=== PATIENT | female | born 1995 | race African-American/Black ===

== ENCOUNTER 2017-01-13 05:38 | Emergency (ER) | payer MEDICAID ==
[~2017-01-13] VITALS: Ht 160 cm; Wt 68.0 kg
[2017-01-13 05:41] VITALS: BP 135/88
[2017-01-13 06:10] LABS: DEFINITIVE VIEW TRANSMISSION; Hematocrit 37.6 % (36.0-46.0); Hemoglobin 12.9 g/dL (12.2-16.2); Mean Corpuscular Hgb Conc. 34.3 g/dL (32.0-36.0); Mean Corpuscular Volume 87.5 fL (80.0-100.0); Mean Platelet Volume 7.4 fL (7.4-10.4); Platelet Count (auto) 319 10^3/uL (140-450); SUSPECT VIEW TRANSMISSION
[2017-01-13 06:18] LABS: White Blood Cell 31.4 10^3/uL (4.4-10.8)
[2017-01-13 06:19] LABS: Metamyelocytes % 0; Myelocytes % 0; Promyelocytes % 0; Reactive Lymphocytes 0
[2017-01-13 06:38] LABS: Urine Bilirubin Negative (Negative); Urine Color PINK (Yellow); Urine Glucose Normal (Normal); Urine Ketone TRACE (Negative); Urine Mucus MODERATE (None Seen); Urine Nitrite Negative (Negative); Urine RBC 1122 /hpf (0 - 4); Urine Squamous Epithelial Cell MOD /hpf (<5); Urine Urobilinogen >12.0 mg/dL (Negative)
[2017-01-13 06:39] LABS: Urine Blood 3+ /uL (Negative)
[2017-01-13 06:50] LABS: Hypersegmented Neutrophils Present; Platelet Estimate Adequate; RBC Morphology Normal
[2017-01-13 07:00] LABS: Albumin 3.3 g/dL (3.4-5.0); BUN/Creatinine Ratio 10.5; Bilirubin, Total 1.4 mg/dL (0.2-1.0); Calcium 8.8 mg/dL (8.5-10.1); Potassium 3.6 mmol/L (3.5-5.1); Total Protein 7.9 g/dL (6.4-8.2)
[2017-01-13] MEDS ORDERED: cefTRIAXone SOD 1,000 MG VL IM ONE (07:00)
[2017-01-13] MEDS ORDERED: methylPREDNISolone SOD SUCC 125 MG/2 ML VL IM ONE (07:00)
== END 2017-01-13 08:07 | disposition home or self-care (01) ==
LOC: ER 05:41
DX: J03.90 Acute tonsillitis, unspecified (principal)
CPT/HCPCS: 36415; 80053; 81001; 81025; 85007; 85027; 96372; 99284; J0696; J2930

== ENCOUNTER 2017-01-15 07:17 | Emergency (ER) | payer MEDICAID ==
[~2017-01-15] VITALS: Ht 162.6 cm; Wt 68.0 kg
[2017-01-15 07:28] VITALS: BP 148/82
[2017-01-15] MEDS: methylPREDNISolone SOD SUCC 125 MG/2 ML VL IM ONE (09:15)
[2017-01-15] MEDS: cefTRIAXone SOD 1,000 MG VL IM ONE (09:16)
== END 2017-01-15 09:39 | disposition home or self-care (01) ==
LOC: ER 07:17
DX: J03.90 Acute tonsillitis, unspecified (principal)
CPT/HCPCS: 96372; 99284; J0696; J2930